=== PATIENT | male | born 1985 | race Caucasian/White ===

== ENCOUNTER 2019-08-27 23:57 | Emergency (ER) | payer MEDICAID, OTHER ==
[~2019-08-27] VITALS: Ht 172.7 cm; Wt 65.9 kg
--- NOTE | 2019-08-28 00:33 | PHYS DOC ---
Past Medical History Past Medical History: No Pertinent History Additional Past Medical Histor: SVT with ablation Past Surgical History: No Surgical History Smoking Status: Current Every Day Smoker Additional Information: 0.5/ ppd Alcohol Use: Sober Drug Use: Marijuana General Adult EDM: Chief Complaint: SUICDAL IDEATION HPI: HPI: Patient is a 34-year-old male who was found by police walking [place] the [address] [place]. He states he was doing this because he got an argument with his . He denies any suicidal or homicidal ideation. When the police found him he did not answer the suicidal question quickly enough so they brought him for eval uation. [] Review of Systems: Review of Systems: Constitutional: Denies fever or chills. [] Eyes: Denies change in visual acuity. [] HENT: Denies nasal congestion or sore throat. [] Respiratory: Denies cough or shortness of breath. [] Cardiovascular: Denies chest pain or edema. [] GI: Denies abdominal pain, nausea, vomiting, bloody stools or diarrhea. [] : Denies dysuria. [] Musculoskeletal: Denies back pain or joint pain. [] Integument: Denies rash. [] Neurologic: Denies headache, focal weakness or sensory changes. [] Endocrine: Denies polyuria or polydipsia. [] Lymphatic: Denies swollen glands. [] Psychiatric: Depressed but denies suicidal or homicidal ideation [] Heart Score: Risk Factors: Risk Factors: DM, Current or recent (<one month) smoker, HTN, HLP, family history of CAD, obesity. Risk Scores: Score 0 - 3: 2.5% MACE over next 6 weeks - Discharge Home Score 4 - 6: 20.3% MACE over next 6 weeks - Admit for Clinical Observation Score 7 - 10: 72.7% MACE over next 6 weeks - Early Invasive Strategies Allergies: Allergies: Allergies Coded Allergies Type Severity Reaction Last Updated Verified Penicillins Allergy Mild hives 08/12/13 Yes ceftriaxone Allergy Mild hives 08/12/13 Yes Physical Exam: PE: Constitutional: Well developed, well nourished, no acute distress, non-toxic appearance. [] HENT: Normocephalic, atraumatic, bilateral external ears normal, oropharynx moist, no oral exudates, nose normal. [] Eyes: PERRLA, EOMI, conjunctiva normal, no discharge. [] Neck: Normal range of motion, no tenderness, supple, no stridor. [] Cardiovascular:Heart rate regular rhythm, no murmur [] Lungs & Thorax: Bilateral breath sounds clear to auscultation [] Abdomen: Bowel sounds normal, soft, no tenderness, no masses, no pulsatile masses. [] Skin: Warm, dry, no erythema, no rash. [] Back: No tenderness, no CVA tenderness. [] Extremities: No tenderness, no cyanosis, no clubbing, ROM intact, no edema. [] Neurologic: Alert and oriented X 3, normal motor function, normal sensory function, no focal deficits noted. [] Psychologic: Affect normal, judgement normal, mood normal. [] EKG: EKG: [] Radiology/Procedures: Radiology/Procedures: [] Course & Med Decision Making: Course & Med Decision Making Pertinent Labs and Imaging studies reviewed. (See chart for details) [Psychiatric assessment team evaluated the patient and we agree that he is safe to go home with a safety plan with some outpatient resources available for marriage and individual counseling.] Dragon Disclaimer: Dragon Disclaimer: This electronic medical record was generated, in whole or in part, using a voice recognition dictation system. Departure Departure Impression: Primary Impression: Depression Qualified Codes: F32.1 - Major depressive disorder, single episode, moderate Disposition: 01 HOME, SELF-CARE Condition: STABLE Referrals: NO PCP (PCP) Patient Instructions: Depression, Adult Additional Instructions: Return to the emergency department with any new or concerning symptoms YADIRA GALINDO DO August 28, 2019 00:33
[2019-08-28 01:25] VITALS: BP 135/77
== END 2019-08-28 01:30 | disposition home or self-care (01) ==
LOC: ER 23:57
DX: F32.1 Major depressive disorder, single episode, moderate (principal); F17.200 Nicotine dependence, unspecified, uncomplicated; F12.90 Cannabis use, unspecified, uncomplicated; Z88.0 Allergy status to penicillin; Z88.6 Allergy status to analgesic agent
CPT/HCPCS: 99285